=== PATIENT | female | born 1960 | race Caucasian/White ===

== ENCOUNTER 2017-06-17 17:41 | Inpatient (IN) | payer MEDICARE, OTHER ==
[~2017-06-17] VITALS: Ht 175.3 cm; Wt 78.9 kg
--- NOTE | 2017-06-17 17:50 | NUR ---
PT BIBRA FROM SNF. HERE FOR MEDICAL AND PSYCH EVAL FOR POSSIBLE PSYCH ADMISSION. PER REPORT, PT IS AGITATED, AGRESSIVE TO STAFF. ON MONITOR. STABLE VITALS. AWAITING MD CUELLAR.
[2017-06-17 18:22] LABS: BASOPHILS # (AUTO) 0.1 /CMM (0.0-0.2); BASOPHILS % (AUTO) 1.3 % (0.0-2.0); EOSINOPHILS # (AUTO) 0.1 /CMM (0.0-0.7); HEMATOCRIT 35 % (33-45); HEMOGLOBIN 12.1 g/dL (11.5-14.8); LYMPHOCYTES % (AUTO) 47.5 % (20.0-44.0); MEAN CORPUSCULAR HEMOGLOBIN 34 PG (26.0-33.0); MEAN CORPUSCULAR HGB CONC 35 g/dl (31.0-36.0); MEAN CORPUSCULAR VOLUME 97 fL (82-100); MONOCYTES % (AUTO) 9.7 % (2.0-12.0); NEUTROPHILS # (AUTO) 4.2 /CMM (1.8-8.9); NEUTROPHILS % (AUTO) 40.5 % (43.0-81.0); PLATELET COUNT (AUTO) 216 /CMM (150-450); RDW COEFFICIENT OF VARIATION 11.4 (11.5-15.0); RED BLOOD CELL COUNT(AUTO) 3.58 MIL/uL (4.0-5.2); WHITE BLOOD COUNT (AUTO) 10.4 K/uL (4.3-11.0)
[2017-06-17] MEDS ORDERED: ACET-868 PO (18:32)
[2017-06-17] MEDS ORDERED: FLUP10TA7 PO (18:32)
[2017-06-17] MEDS ORDERED: BISA10SU8 RC (18:32)
[2017-06-17] MEDS ORDERED: MAGN400O6 PO (18:32)
[2017-06-17] MEDS ORDERED: ATOR20TA PO (18:32)
[2017-06-17] MEDS ORDERED: BENZ2TAB7 PO (18:32)
[2017-06-17] MEDS ORDERED: DIVA500T2 PO (18:32)
[2017-06-17] MEDS ORDERED: NA P133E RC (18:32)
[2017-06-17] MEDS ORDERED: LURA60TA PO (18:32)
[2017-06-17] MEDS ORDERED: ASPI-991 PO (18:32)
[2017-06-17 18:38] LABS: ALANINE AMINOTRANSFERASE 15 U/L (12-78); ALBUMIN 3.2 g/dL (3.4-5.0); ALCOHOL, BLOOD < 3 mg/dL (0-0); ALKALINE PHOSPHATASE 84 U/L (46-116); ASPARTATE AMINOTRANSFERASE 16 U/L (15-37); BILIRUBIN,DIRECT 0.1 mg/dL (0.0-0.2); BILIRUBIN,TOTAL 0.2 mg/dL (0.2-1.0); CALCIUM, SERUM 8.8 mg/dL (8.5-10.1); CARBON DIOXIDE 26 mmol/L (21-32); CHLORIDE 101 mmol/L (98-107); CREATININE 0.8 mg/dL (0.6-1.3); GLUCOSE 115 mg/dL (74-106); POTASSIUM 4.2 mmol/L (3.5-5.1); SODIUM SERUM 133 mmol/L (136-145); TOTAL PROTEIN, SERUM 6.5 g/dL (6.4-8.2); UREA NITROGEN, BLOOD 23 mg/dL (7-18)
[2017-06-17 18:39] LABS: APPEARANCE,URINE Clear (CLEAR); BILIRUBIN,URINE Negative (NEGATIVE); BLOOD, URINE Negative Ery/uL (NEGATIVE); COLOR,URINE Yellow (YELLOW); KETONES,URINE Negative (NEGATIVE); LEUKOCYTE ESTERASE ,URINE Trace (NEGATIVE); NITRITE, URINE Negative (NEGATIVE); PH,URINE 6.5 (5.0-8.0); PROTEIN,URINE Negative (NEGATIVE); UGLUCOSE Negative (NEGATIVE); UROBILINOGEN,URINE 0.2 EU/dL (0.2)
[2017-06-17 18:44] LABS: ACETAMINOPHEN < 2 ug/ml (10-30); SALICYLATE 2.6 mg/dL (2.8-20.0)
--- NOTE | 2017-06-17 19:12 | NUR ---
CALLED ROSALIEY PAPER MACHINE OPERATOR, SHE WILL BE HERE IN 1 HR.
[2017-06-17 19:22] LABS: RBC,URINE 0-2 /HPF (0-2)
[2017-06-17 19:23] LABS: BACTERIA,URINE Few /HPF (None Seen); SQUAMOUS EPITHELIAL CELL,UR Moderate /HPF (None Seen); URINE AMORPHOUS URATE Few /HPF (None Seen)
--- NOTE | 2017-06-17 20:35 | NUR ---
NADEEM RN AT BEDSIDE FOR PSYCH EVAL.
--- NOTE | 2017-06-17 21:13 | NUR ---
REPORT GIVEN TO FREDA. PT AWAITING TRANSFER TO FLOOR.
[2017-06-17] MEDS ORDERED: ACETAMINOPHEN 325 MG TABLET PO PRN ×2 (21:30→23:00)
[2017-06-17] MEDS ORDERED: MAGNESIUM HYDROXIDE 30 ML UDC PO PRN ×2 (21:30→23:00)
[2017-06-17] MEDS ORDERED: BISACODYL SUPP (10 MG) 10 MG/SUPP.RECT SUPP.RECT RC PRN (21:30)
[2017-06-17 22:00] VITALS: BP 135/74
--- NOTE | 2017-06-17 22:00 | NUR ---
RN NOTES PATIENT ARRIVED ON UNIT VIA GURNEY FROM ER. PATIENT ADMITTED ON 5150 FOR GD AND DTO. PER HOLD PATIENT WAS BROUGHT IN FROM [facility] DUE TO ABUSIVE BEHAVIOR TOWARDS STAFF AND RESIDENTS. PATIENT WAS THREATENING AND PROVOKING STAFF. PATIENT IS A/O X2-3. NO SIGNS OF DISTRESS OR DISCOMFORT. BREATHING EVEN AND UNLABORED. PT. DENIES SUICIDAL AND HOMICIDAL. PATIENT IS NOTED TO BEING UNCOOPERATIVE, ANGRY, VERBALLY ABUSIVE, REFUSING CARE, LIABILE, IMPULSIVE, UNPREDICTABLE, EASILY AGITATED AND AGGRESSIVE. V/S TAKEN, CONTRABAND DONE AND SKIN ASSESSMENT WAS REFUSED BY PATIENT X3. PATIENT IS UNDER DR. MAZA FOR PSYCH CARE AND DR. THOMPSON FOR MEDICAL CARE. PATIENT ORIENTED TO UNIT AND ROOM. BED IN LOW LOCKED POSITION. CALL LIGHT WITHIN REACH. WILL CONTINUE TO MONITOR FOR SAFETY.
[2017-06-17] MEDS ORDERED: TEMAZEPAM 7.5 MG CAPSULE PO PRN (23:00)
[2017-06-17] MEDS ORDERED: MAG HYDROX/AL HYDROX/SIMETH 30 ML UDC PO PRN (23:00)
--- NOTE | 2017-06-18 08:03 | NUR ---
Initial discharge plan: Patient resides at [address] [place] [address] / [phone], with her sisters. Pt. wishes to go back to her residence with her sisters upon discharge. SW to communicate with patients sister Juan Yeager- [phone]) regarding most appropriate discharge plan. SW to help form a safe and proper discharge. Patient to be given substance abuse referrals prior to discharge. Addendum: 06/18/17 at 1212 by GWEN ROBLES INCORRECT DISCHARGE PLAN: PLEASE DISREGARD. INCORRECT PATIENT.
[2017-06-18 08:18] VITALS: BP 125/60
[2017-06-18] MEDS: LORAZEPAM 1 MG TABLET PO PRN ×2 (10:30→17:53)
[2017-06-18] MEDS ORDERED: NA PHOS,M-B/NA PHOS,DI-BA 1 EA ENEMA RC PRN (12:30)
[2017-06-18] MEDS: ASPIRIN EC 81 MG TABLET.DR PO SCH (12:30)
[2017-06-18 15:58] VITALS: BP 100/69
[2017-06-18] MEDS: DIVALPROEX SODIUM 500 MG TABLET.DR PO SCH ×2 (17:00→17:29)
--- NOTE | 2017-06-18 17:57 | NUR ---
RN NOTE:PATIENT AGITATED AND MEDICATED WITH ATIVAN 1MG.
--- NOTE | 2017-06-18 18:02 | NUR ---
RN-CO: Patient is verbally aggressive, yelling and screaming in the hallway and in the nursing station. We called security because she is non redirectable, she went momentarily to her room but when security left she went back to nursing station and curse all the nurses. She is very unpredictable, took PO Ativan but ineffective. Called Dr Campa and ordered Zyprexa 5 mg IM and Ativan 1 mg IM STAT, noted.
[2017-06-18] MEDS ORDERED: LORAZEPAM INJ 2 MG/ML VIAL IM STA (18:05)
[2017-06-18] MEDS ORDERED: OLANZAPINE 10 MG VIAL IM STA (18:05)
--- NOTE | 2017-06-18 18:29 | NUR ---
RN-CO: IM SHOT GIVEN ORDERED. WE WILL CONTINUE TO MONITOR.
--- NOTE | 2017-06-18 18:30 | NUR ---
RN-CO: IM SHOT GIVEN TO RIGHT UPPER QUADRANT, QUIET ENVIRONMENT WITH LOW LEVEL OF STIMULI. WE WILL CONTINUE TO MONITOR. SHE REMAINED ANGRY, DEMANDING AND INTRUSIVE.
[2017-06-18 20:24] VITALS: BP 110/73
[2017-06-18] MEDS: FLUPHENAZINE HCL 10 MG TABLET PO SCH (21:33)
[2017-06-18] MEDS: ATORVASTATIN 10 MG TABLET PO SCH (21:34)
[2017-06-19 08:16] VITALS: BP 128/66
[2017-06-19] MEDS: ASPIRIN EC 81 MG TABLET.DR PO SCH (08:54)
[2017-06-19] MEDS: DIVALPROEX SODIUM 500 MG TABLET.DR PO SCH ×3 (08:54→16:23)
[2017-06-19] MEDS: FLUPHENAZINE HCL 10 MG TABLET PO SCH ×2 (08:55→21:29)
[2017-06-19] MEDS: NICOTINE PATCH (14MG) 14 MG PATCH.TD24 TD SCH (09:00)
--- NOTE | 2017-06-19 10:17 | NUR ---
Initial Discharge Plan: Patient currently resides at [facility] [address] [id number], and wishes to return upon discharge. milk processing worker called [facility] and spoke with Sadaf in administrations. At first Sadaf stated that patient was able to return to the SNF. However, Sadaf then consulted with the nursing mushroom growing supervisor and informed SW that patient was ready to be discharged from the SNF back to her assisted living facility. Sadaf asked outreach and education social worker to call her later so that she can provide the address and information for her. milk processing worker will follow up with MD and will work to arrange safe and proper discharge.Patient will be provided referrals for smoking.
[2017-06-19] MEDS: LORAZEPAM 1 MG TABLET PO PRN ×2 (12:39→21:29)
--- NOTE | 2017-06-19 12:43 | NUR ---
RN NOTES: PT IS AGITATED, MEDICATED WITH ATIVAN 1MG.
--- NOTE | 2017-06-19 13:17 | NUR ---
Please note: PATIENT HAS CONSERVATOR. The conservator is patient's mother, Sindy Dukes [phone] [home] / [phone] [cell]. MARGARET asked Sindy to fax over the paperwork, which she stated she will do in a couple hours. Addendum: 06/19/17 at 1318 by ADRIEN ROBLES when speaking with conservator/mother, MARGARET was informed that a nursing facility would be best for patient.
--- NOTE | 2017-06-19 15:27 | NUR ---
MARGARET faxed over an inquiry to Leonel from [facility] [phone] / fax number [phone]
[2017-06-19 16:00] VITALS: BP_SYST 130
[2017-06-19] MEDS: QUETIAPINE FUMARATE 100 MG TABLET PO SCH (17:39)
[2017-06-19 20:03] VITALS: BP 107/52
[2017-06-19] MEDS: ATORVASTATIN 10 MG TABLET PO SCH (21:28)
[2017-06-20 08:54] VITALS: BP 117/69
[2017-06-20] MEDS: FLUPHENAZINE HCL 10 MG TABLET PO SCH ×2 (09:04→21:43)
[2017-06-20] MEDS: DIVALPROEX SODIUM 500 MG TABLET.DR PO SCH ×3 (09:04→16:19)
[2017-06-20] MEDS: NICOTINE PATCH (14MG) 14 MG PATCH.TD24 TD SCH (09:04)
[2017-06-20] MEDS: ASPIRIN EC 81 MG TABLET.DR PO SCH (09:04)
[2017-06-20] MEDS: QUETIAPINE FUMARATE 100 MG TABLET PO SCH ×3 (09:04→16:19)
[2017-06-20] MEDS: LORAZEPAM 1 MG TABLET PO PRN (12:27)
--- NOTE | 2017-06-20 12:27 | NUR ---
GPS/RN PATIENT AGITATED, ANXIOUS, AGGRESSIVE, YELLING AT STAFF, ADMINISTERED ATIVAN 1 MG, WILL CONTINUE TO MONITOR.
[2017-06-20 16:27] VITALS: BP 126/59
[2017-06-20] MEDS: ATORVASTATIN 10 MG TABLET PO SCH (21:43)
[2017-06-21 07:24] LABS: CALCIUM, SERUM 8.6 mg/dL (8.5-10.1); CREATININE 0.8 mg/dL (0.6-1.3); MAGNESIUM 1.8 mg/dL (1.8-2.4); PHOSPHORUS 3.9 mg/dL (2.5-4.9); POTASSIUM 4.4 mmol/L (3.5-5.1)
[2017-06-21 08:00] VITALS: BP 112/80
--- NOTE | 2017-06-21 09:14 | NUR ---
motion picture set worker spoke to patient's mother and conservator, Sindy Jenkinsedmundo [phone] [home] / [phone] [cell] to inform her that patient is being discharged back to [facility] [phone]) [address] [facility] [place] [address]. Patient's mother and conservator was agreeable with the discharge plan.
[2017-06-21] MEDS: QUETIAPINE FUMARATE 100 MG TABLET PO SCH ×3 (09:36→16:12)
[2017-06-21] MEDS: ASPIRIN EC 81 MG TABLET.DR PO SCH (09:36)
[2017-06-21] MEDS: FLUPHENAZINE HCL 10 MG TABLET PO SCH (09:36)
[2017-06-21] MEDS: NICOTINE PATCH (14MG) 14 MG PATCH.TD24 TD SCH (09:36)
[2017-06-21] MEDS: DIVALPROEX SODIUM 500 MG TABLET.DR PO SCH ×3 (09:36→16:12)
--- NOTE | 2017-06-21 11:30 | NUR ---
GPS/RN REPORT GIVEN TO [facility] DEN[facility] RN
--- NOTE | 2017-06-21 12:30 | NUR ---
GPS/RN CALL FROM [facility] (DENISHA RN) RECEIVED DECLINING ADMISSION OF THE PT. SW MADE AWARE AND WILL MAKE APPROPRIATE ARRANGEMENTS. AMBULANCE PLACED CASINO CASHIER MANAGER STATUS. PT IS READY FOR D/C.
[2017-06-21 16:00] VITALS: BP 110/66
--- NOTE | 2017-06-21 16:30 | NUR ---
GPS/RN PT DISCHARGED TO [facility] [address] REPORT GIVEN TO NATHALIE YOUNG [phone]. PT TO BE FOLLOWED BY FACILITY DYE WEIGHER HELPER.PT MOTHER /CONSERVATOR MADE AWARE OF DISCHARGE. NO SI OR HI AT THE TIME OF DISCHARGE. PT REFUSED TO SIGN D/C PAPERWORK . PROPERTY RETURNED. ID BAN REMOVED. PT LEFT VIA AMBULANCE.
--- NOTE | 2017-06-24 10:40 | NUR ---
Discharge Note Patient was discharged to [facility] at [address] [facility], [id number] via ambulance transportation at 4:00pm. Patients mother and conservator, Sindy Dukes [phone] [home] / [phone] [cell], was made aware of this change in discharge plan. She was in agreement with the change. Patient will follow up with her cnc milling machinist, Dr. Todd [address], [place] [address] [phone] on Sunday 06/24 at 10am. Patient will also follow up with a psychiatrist at the facility the following week. The psychiatrist will also address patients alcohol use. As patient will be in a locked SNF, no nicotine anonymous referrals were given because patient would not be able to attend. However, patient was strongly encouraged to follow up with her doctor at the facility to address her smoking and work on smoking cessation.
== END 2017-06-21 16:30 | DRG 885 ==
LOC: ER 17:45 → GPS 21:05
PROVIDERS: ADMIT Psychiatry & Neurology Psychiatry; ATTEND Psychiatry & Neurology Psychiatry
DX: F25.9 Schizoaffective disorder, unspecified (principal); E87.1 Hypo-osmolality and hyponatremia; N39.0 Urinary tract infection, site not specified; F29 Unspecified psychosis not due to a substance or known physiological condition; E78.5 Hyperlipidemia, unspecified; G40.909 Epilepsy, unspecified, not intractable, without status epilepticus; G89.4 Chronic pain syndrome; I10 Essential (primary) hypertension; I25.10 Atherosclerotic heart disease of native coronary artery without angina pectoris; F32.9 Major depressive disorder, single episode, unspecified; Z79.899 Other long term (current) drug therapy; Z79.82 Long term (current) use of aspirin; F41.9 Anxiety disorder, unspecified; Z73.6 Limitation of activities due to disability; E86.0 Dehydration; F17.200 Nicotine dependence, unspecified, uncomplicated
CPT/HCPCS: 36415; 80048-TC; 80076-TC; 80164-TC; 80305; 81000-TC; 83735-TC; 84100-TC; 85025-TC; 87081-TC; G0480; J2060; J3490

== ENCOUNTER 2020-02-11 15:02 | Inpatient (IN) | payer MEDICARE, OTHER ==
[~2020-02-11] VITALS: Ht 167.6 cm; Wt 69.4 kg
[~2020-02-11 15:02] MED LIST: ACET-868 PO; ASPI-1152 PO; ATOR20TA PO; BENZ2TAB7 PO; BISA10SU8 RC; LURA60TA PO; MAGN400O6 PO; NA P133E RC
[2020-02-11 16:00] VITALS: BP 135/71
[2020-02-11] MEDS ORDERED: MAGNESIUM HYDROXIDE 30 ML UDC PO PRN (16:00)
[2020-02-11] MEDS ORDERED: ACETAMINOPHEN 325 MG TABLET PO PRN ×2 (16:00→18:00)
[2020-02-11] MEDS ORDERED: BLOOD SUGAR DIAGNOSTIC 1 EACH STRIP IN ONE (16:00)
[2020-02-11] MEDS ORDERED: ZOLPIDEM TARTRATE 5 MG TABLET PO PRN (16:00)
[2020-02-11] MEDS ORDERED: CLON0.5T4 PO (16:55)
[2020-02-11] MEDS ORDERED: OLAN10TA3 PO (16:55)
[2020-02-11] MEDS ORDERED: DIVA-78 PO (16:55)
[2020-02-11] MEDS ORDERED: DOCU-141 PO (16:55)
[2020-02-11] MEDS ORDERED: ALBU18HF2 IH (16:55)
[2020-02-11] MEDS ORDERED: MULT-15 PO (16:55)
[2020-02-11] MEDS ORDERED: ACET-868 PO (16:55)
[2020-02-11] MEDS ORDERED: LETR2.5T PO (16:55)
[2020-02-11] MEDS ORDERED: MAG30ORA PO (16:55)
[2020-02-11] MEDS ORDERED: TRAM50TA2 PO (16:55)
[2020-02-11] MEDS ORDERED: GUAI5SYR PO (16:55)
[2020-02-11] MEDS ORDERED: FAMO40TA7 PO (16:55)
[2020-02-11] MEDS ORDERED: POLY17PO20 PO (16:55)
[2020-02-11] MEDS ORDERED: SENN-261 PO (16:55)
[2020-02-11] MEDS ORDERED: ONDA4TAB5 PO (16:55)
[2020-02-11] MEDS ORDERED: LORA10TA7 PO (16:55)
[2020-02-11] MEDS ORDERED: HYDR25TA4 PO (16:55)
[2020-02-11] MEDS ORDERED: SPIR100T5 PO (16:55)
--- NOTE | 2020-02-11 17:46 | NUR ---
GPS/RN-NOTES ADMITTED 59 YEARS OLD FEMALE PATIENT FROM [facility]. PATIENT ON 5150 HOLD FOR DTS AND DTO. UPON FACE TO FACE INTERVIEW PATIENT,ALERT TO NAME AND PLACE ONLY,PATIENT IS UNCOOPERATIVE,EASILY ANGRY,YELLING AT THE ACCOUNT SPECIALIST DURING INTERVIEW. PATIENT REFUSED TO ANSWER MOST OF THE QUESTIONS. DR. STARR AND DR. BLACK MADE AWRE OF THE ADMISSION. DR. BLACK WILL RECONCILE THE MEDICATION. PATIENT'S MOTHER ERON MADE AWARE OF THE ADMISSION. PATIENT REFUSED FULL BODY ASSESSMENT. AND REFUSED TO SIGN ADMITTING PAPERS. CONTRABAND DONE.
[2020-02-11] MEDS ORDERED: FAMOTIDINE 40 MG TABLET PO SCH (18:00)
[2020-02-11] MEDS ORDERED: ALBUTEROL FS 2.5 MG/3 ML VIAL.NEB NEB PRN (18:00)
[2020-02-11] MEDS: HYDROCHLOROTHIAZIDE 25 MG TABLET PO SCH (18:24)
--- NOTE | 2020-02-11 18:41 | NUR ---
GPS/RN-NOTES FEMARA 2.5MG P.O NOT ADMINISTER AT THIS TIME DUE TO MEDICATION WAS NOT DELIVER YET IN THE UNIT. [facility]ENE ( PHARMACIES) AWARE AND WILL SEND IN THE UNIT. WILL ENDORSE TO INCOMING NURSE FOR F/U AND CONTINUITY OF CARE.
--- NOTE | 2020-02-11 19:23 | NUR ---
GPS/RN-NOTES ADVISEMENT WAS DISCUSS AND GIVEN TO THE PATIENT.
[2020-02-11 20:37] VITALS: BP 109/65
[2020-02-11] MEDS: DOCUSATE SODIUM 100 MG CAPSULE PO SCH (21:00)
[2020-02-11] MEDS ORDERED: ONDANSETRON 4 MG TAB.RAPDIS PO PRN (21:00)
[2020-02-11] MEDS: LETROZOLE 2.5 MG TABLET PO SCH (22:00)
--- NOTE | 2020-02-11 22:01 | NUR ---
Pt refused medication Femara and Colace. Offered x 3 and explained risk and benefits. Still refuses and aggressive, Stating, Leave me alone, i am not going to take any medications. Will continue to monitor and will endorse to next shift. Charge nurse made aware.
[2020-02-12] MEDS: TRAMADOL HCL 50 MG TABLET PO PRN (06:21)
--- NOTE | 2020-02-12 06:23 | NUR ---
Pt c/o back pain 01/02. Ultram 50 mg po prn given as ordered. Will continue to monitor.
[2020-02-12 08:00] VITALS: BP 136/82
[2020-02-12] MEDS: POLYETHYLENE GLYCOL 3350 17 GM POWD.PACK PO SCH (08:45)
[2020-02-12] MEDS: LORATADINE 10 MG TABLET PO SCH (08:45)
[2020-02-12] MEDS: SPIRONOLACTONE 25 MG TABLET PO SCH (08:45)
[2020-02-12] MEDS: SENNOSIDES 8.6 MG TABLET PO SCH (08:45)
[2020-02-12] MEDS: DOCUSATE SODIUM 100 MG CAPSULE PO SCH ×2 (08:45→21:25)
[2020-02-12] MEDS: MULTIVITAMINS,THERAGRAN 1 UDTAB TABLET PO SCH (08:46)
--- NOTE | 2020-02-12 08:46 | NUR ---
GPS/RN PT REFUSED AM MEDS OFFERED X3
[2020-02-12] MEDS ORDERED: SPIRONOLACTONE 50 MG TABLET PO SCH (09:00)
--- NOTE | 2020-02-12 10:09 | NUR ---
Family Contact: SW called the pts mother, Ashley ([phone]), and left a voicemail stating that the SW would like to discuss the pts initial discharge and treatment plan.
--- NOTE | 2020-02-12 10:25 | NUR ---
Facility Contact: MARGARET spoke with Nancy ([phone]), [facility] Accountant Bookkeeper, and she stated that the pt cannot return to the Board and Care due to her behavior. She stated that she will move the pts belongings to her next residence once she is made aware of the pts discharge. MARGARET stated that she will follow up.
--- NOTE | 2020-02-12 10:56 | NUR ---
Initial Discharge Plan: Pt currently resides at [facility] located at [address] [place] [address]; ([phone]). Per pt, she would not like to go back to that facility. MARGARET spoke with Nancy ([phone]), [facility] and [facility] Licensed Customs Broker, and she stated that the pt cannot return as well. MARGARET will work with the pt and the MD regarding appropriate discharge planning. MARGARET will form a safe and proper discharge.
--- NOTE | 2020-02-12 12:09 | NUR ---
Family Contact: Pts mother, Ashley ([phone]), called the SW back to discuss the pts initial discharge plan. SW informed her that the pt cannot return to the pts previous board and care and therefore we need to either find an alternative board and care or seek a senior living facility. She stated that she believes that a SNF would be better for the pt so that she can continuously take her medication.
--- NOTE | 2020-02-12 15:26 | NUR ---
GROUP NOTE/INDIVIDUAL SESSION: SW encouraged the pt to participate in group therapy but the pt is labile and verbally aggressive and confrontational. SW deemed this pt inappropriate for group at this time.
[2020-02-12 16:00] VITALS: BP 136/84
[2020-02-12 17:28] LABS: ALBUMIN 4.1 g/dL (3.4-5.0); BILIRUBIN,TOTAL 0.2 mg/dL (0.2-1.0); CALCIUM, SERUM 9.3 mg/dL (8.5-10.1); POTASSIUM 3.9 mmol/L (3.5-5.1); TOTAL PROTEIN, SERUM 8.4 g/dL (6.4-8.2)
[2020-02-12 17:32] LABS: CHOLESTEROL 219 mg/dL (<200); HDL CHOLESTEROL 34 mg/dL (40-60); LDL 170 mg/dL (0-99); TRIGLYCERIDES 232 mg/dL (30-150)
[2020-02-12] MEDS: FAMOTIDINE (20 MG) 20 MG TABLET PO SCH (18:10)
[2020-02-12] MEDS: OLANZAPINE 5 MG TABLET PO SCH (18:11)
[2020-02-12] MEDS: HYDROCHLOROTHIAZIDE 25 MG TABLET PO SCH (18:11)
[2020-02-12] MEDS: LETROZOLE 2.5 MG TABLET PO SCH (18:11)
[2020-02-12 20:47] VITALS: BP 142/89
[2020-02-13 08:00] VITALS: BP 101/65
[2020-02-13] MEDS: OLANZAPINE 5 MG TABLET PO SCH ×2 (08:52→16:08)
[2020-02-13] MEDS: LORAZEPAM 0.5 MG TABLET PO PRN (08:54)
[2020-02-13] MEDS: LORATADINE 10 MG TABLET PO SCH (08:56)
[2020-02-13] MEDS: DOCUSATE SODIUM 100 MG CAPSULE PO SCH ×2 (08:56→20:45)
[2020-02-13] MEDS: MULTIVITAMINS,THERAGRAN 1 UDTAB TABLET PO SCH (08:56)
[2020-02-13] MEDS: SENNOSIDES 8.6 MG TABLET PO SCH (08:56)
[2020-02-13] MEDS: POLYETHYLENE GLYCOL 3350 17 GM POWD.PACK PO SCH (08:58)
[2020-02-13] MEDS: SPIRONOLACTONE 25 MG TABLET PO SCH (08:58)
--- NOTE | 2020-02-13 08:59 | NUR ---
GPS/RN-NOTES NOTED PATIENT VERY ANXIOUS SCREAMING AND YELLING TALKING ABOUT HER MOTHER,STATED" MY MOTHER IS VERY OLD AND I'M VERY SICK", REDIRECTED AND REASSURED PATIENT OFFERED ATIVAN AND AGREED. ATIVAN 1MG P.O GIVEN PRN ORDER. WILL CONT. MONITORING FOR SAFETY AND BEHAVIOR.
[2020-02-13] MEDS: MAG HYDROX/AL HYDROX/SIMETH 30 ML UDC PO PRN (12:27)
--- NOTE | 2020-02-13 12:27 | NUR ---
GPS/RN-NOTES PATIENT C/O INDIGESTION ,MAALOX 30ML GIVEN PRN ORDER.
[2020-02-13 16:00] VITALS: BP 116/76
[2020-02-13] MEDS: GABAPENTIN 100 MG CAPSULE PO SCH (16:08)
[2020-02-13] MEDS: FAMOTIDINE (20 MG) 20 MG TABLET PO SCH (17:08)
[2020-02-13] MEDS: LETROZOLE 2.5 MG TABLET PO SCH (17:08)
[2020-02-13] MEDS: HYDROCHLOROTHIAZIDE 25 MG TABLET PO SCH (17:09)
[2020-02-13 20:06] VITALS: BP 96/62
[2020-02-13 21:00] VITALS: BP 104/64
[2020-02-14] MEDS: LORAZEPAM 0.5 MG TABLET PO PRN (01:10)
--- NOTE | 2020-02-14 01:13 | NUR ---
GPS RN NOTES: ANXIOUS PT CAME OUT OF HER ROOM STATING THAT HER ROOMMATE WOKE HER UP TELLING HER THAT THE SUN IS MELTING THE GROUND. WENT TO PTS ROOM NOTED THAT HER ROOMATE IS SLEEPING WITH EYES CLOSED. PT STATED, "SHES UGLY AND I WANT TO SIT IN THE HALLWAY." PT SITTING IN WALKER CHAIR NEXT TO STAFF FOR SAFETY MONITOR. PT SEEMS ANXIOUS. OFFERED ATIVAN 1MG PO PRN ORDERED. PT AGREED AND TOLERATED MEDICATION WELL. CONTINUE TO MONITOR.
--- NOTE | 2020-02-14 07:02 | NUR ---
GPS RN NOTES: PAIN PT C/O OF STOMACH PAIN. OFFER TYLENOL 650 MG PO PRN ORDERED. PT AGREED AND TOLERATED WELL CONTINUE TO MONITOR.
[2020-02-14 08:00] VITALS: BP 116/69
[2020-02-14] MEDS: MULTIVITAMINS,THERAGRAN 1 UDTAB TABLET PO SCH (09:00)
[2020-02-14] MEDS: DOCUSATE SODIUM 100 MG CAPSULE PO SCH ×2 (09:00→20:39)
[2020-02-14] MEDS: LORATADINE 10 MG TABLET PO SCH (09:00)
[2020-02-14] MEDS: OLANZAPINE 5 MG TABLET PO SCH ×2 (09:00→16:41)
[2020-02-14] MEDS: POLYETHYLENE GLYCOL 3350 17 GM POWD.PACK PO SCH (09:00)
[2020-02-14] MEDS: GABAPENTIN 100 MG CAPSULE PO SCH ×2 (09:00→16:41)
[2020-02-14] MEDS: SENNOSIDES 8.6 MG TABLET PO SCH (09:00)
--- NOTE | 2020-02-14 09:00 | NUR ---
RN NOTE- PT IN ROOM AND WANDERING UNIT. ALERT CALM COOPERATIVE A BIT NEEDY AND INTRUSIVE AT TIMES. DENIES SI HI AH VH. TALKING ABOUT FATHERS DA AND HER FATHER DYING. DIRECTABLE .
[2020-02-14] MEDS: SPIRONOLACTONE 25 MG TABLET PO SCH (09:01)
[2020-02-14 16:00] VITALS: BP 110/62
[2020-02-14] MEDS: HYDROCHLOROTHIAZIDE 25 MG TABLET PO SCH (17:19)
[2020-02-14] MEDS: FAMOTIDINE (20 MG) 20 MG TABLET PO SCH (17:20)
[2020-02-14] MEDS: LETROZOLE 2.5 MG TABLET PO SCH (17:22)
[2020-02-14] MEDS: TRAMADOL HCL 50 MG TABLET PO PRN ×2 (18:39→18:44)
--- NOTE | 2020-02-14 18:45 | NUR ---
RN NOTE/ CHARTING ERROR. - PT C/O PAIN, ULTRAM PULLED AND SCANNED, PAIN ASSESSMENT DONE. PT THEN C/O PAIN MORE IMPORTANTLY RELATED TO NEUROPATHY IN RT FOOT. ULTRAM ADMINISTERED. I THEN RESCANNED TO ADJUST ASSESSMENT INFORMATION. IT LISTED ULTRAM BEING GIVEN TWICE BUT ONLY ONE WAS ADMINISTERED AND THE COUNT IS CORRECT IN OMNICELL.
[2020-02-14 20:14] VITALS: BP 121/84
--- NOTE | 2020-02-15 06:27 | NUR ---
GPS RN CLOSING NOTE, PATIENT AWAKE THIS TIME, ALREADY WITH EPISODES OF PARANOIA, NO DISTRESS NOTED, PT REMAINED STABLE THROUGHOUT SHIFT, ALL NEEDS, SAFETY PRECAUTIONS IN PLACE, BED LOCKED POSITION AND LOWEST POSITION, BED ALARM ON, HOB ELEVATED TO SEMI FOWLERS POSITION, CALL LIGHT WITHIN REACH, WILL ENDORSE CONTINUITY OF CARE TO ONCOMING NURSE.
[2020-02-15] MEDS: LORATADINE 10 MG TABLET PO SCH (08:31)
[2020-02-15] MEDS: GABAPENTIN 100 MG CAPSULE PO SCH ×2 (08:31→17:16)
[2020-02-15] MEDS: SENNOSIDES 8.6 MG TABLET PO SCH (08:31)
[2020-02-15] MEDS: OLANZAPINE 5 MG TABLET PO SCH ×2 (08:31→17:16)
[2020-02-15] MEDS: SPIRONOLACTONE 25 MG TABLET PO SCH (08:31)
[2020-02-15] MEDS: DOCUSATE SODIUM 100 MG CAPSULE PO SCH ×2 (08:31→21:00)
[2020-02-15] MEDS: POLYETHYLENE GLYCOL 3350 17 GM POWD.PACK PO SCH (08:31)
[2020-02-15] MEDS: MULTIVITAMINS,THERAGRAN 1 UDTAB TABLET PO SCH (08:31)
--- NOTE | 2020-02-15 08:32 | NUR ---
RN NOTE- HELD ALDACTONE PT REFUSED VS TWICE
--- NOTE | 2020-02-15 09:00 | NUR ---
RN NOTE- PT IN WATSON AND ROOM, FOCUSED ON NEUROPATHY THOUGH CLAIMS IT ISNT BOTHERING HER AT MOMENT. PT REFUSED VS THIS MORNING THOUGH MED COMPLIANT. PO INTAKE GOOD NEEDS ATTENDED DENIES SI HI AH VH PARANOID GUARDED IRRITABLE AT TIMES POOR EYE CONTACT PRESSURED SPEECH
[2020-02-15] MEDS: LORAZEPAM 0.5 MG TABLET PO PRN (10:25)
--- NOTE | 2020-02-15 10:25 | NUR ---
RN NOTE- PT VERY LABILE YELLING INTRUSIVE OPPOSITIONAL TO DIRECTION REFUSED ATIVAN. REORIENTED W EXTRA STAFF. TOOK ATIVAN 1 MG
[2020-02-15 16:00] VITALS: BP 111/77
--- NOTE | 2020-02-15 16:08 | NUR ---
GROUP NOTE: SW encouraged the pt to participate in group therapy but the pt refused, pt is labile and verbally aggressive. Pt refused to engage with SW. SW deemed this pt inappropriate for group at this time.
[2020-02-15] MEDS: HYDROCHLOROTHIAZIDE 25 MG TABLET PO SCH (17:15)
[2020-02-15] MEDS: FAMOTIDINE (20 MG) 20 MG TABLET PO SCH (17:16)
[2020-02-15] MEDS: LETROZOLE 2.5 MG TABLET PO SCH (17:18)
[2020-02-15] MEDS: SIMVASTATIN 10 MG TABLET PO SCH (21:00)
--- NOTE | 2020-02-15 21:00 | NUR ---
GPS RN NOTES: REFUSED MED PT REFUSED COLACE 100MG AND ZOCOR 10 MG PO ORDERED. PT YELLED AND STATED, " WHAT THE HELL IS WRONG WITH YOU/ I DON'T WANT THAT SHIT! GET OUT!" EXPLAIN RISKS AND BENEFITS. PT STILL REFUSED X3. CONTINUE TO MONITOR.
[2020-02-16 08:00] VITALS: BP 120/65
[2020-02-16] MEDS: POLYETHYLENE GLYCOL 3350 17 GM POWD.PACK PO SCH (09:00)
[2020-02-16] MEDS: OLANZAPINE 5 MG TABLET PO SCH ×2 (09:01→17:28)
[2020-02-16] MEDS: MULTIVITAMINS,THERAGRAN 1 UDTAB TABLET PO SCH (09:02)
[2020-02-16] MEDS: DOCUSATE SODIUM 100 MG CAPSULE PO SCH ×2 (09:02→21:12)
[2020-02-16] MEDS: GABAPENTIN 100 MG CAPSULE PO SCH ×2 (09:02→17:25)
[2020-02-16] MEDS: SENNOSIDES 8.6 MG TABLET PO SCH (09:02)
[2020-02-16] MEDS: LORATADINE 10 MG TABLET PO SCH (09:02)
[2020-02-16] MEDS: SPIRONOLACTONE 25 MG TABLET PO SCH (09:02)
--- NOTE | 2020-02-16 09:39 | NUR ---
PLACEMENT: SW faxed clinical packet to Dr. Joe Robb's certified nurse (P:[phone] F:[phone]) for SNF placement options.
--- NOTE | 2020-02-16 10:05 | NUR ---
WOUND CARE CONSULT: PT SEEN AFTER SPEAKING WITH NURSING STAFF REGARDING LONG SHARP TOENAILS, PRESENT ON ADMISSION. RECOMMEND DPM CONSULT. (PT REQUESTING NAIL TRIM). DR LU NOTIFIED. WILL SEE PRN. CURRENT NIURKA SCORE IS 21.
[2020-02-16] MEDS: LORAZEPAM 0.5 MG TABLET PO PRN (12:35)
--- NOTE | 2020-02-16 12:38 | NUR ---
RN NOTE: ANXIETY PT YELLLING IN HALLWAY. INCREASED AGGITATION AND ANXIETY. MEDICATED WITH ATIVAN 1MG PRN
--- NOTE | 2020-02-16 15:29 | NUR ---
GROUP NOTE: SW encouraged the pt to participate in group therapy, however, pt is not appropriate at this time. Pt is easily agitated with labile mood, pt began yelling, "give me my medication, give it to me." SW stepped out of the pts room as pts behavior began to escalate.
[2020-02-16 16:00] VITALS: BP 125/69
[2020-02-16] MEDS: LETROZOLE 2.5 MG TABLET PO SCH (17:28)
[2020-02-16] MEDS: FAMOTIDINE (20 MG) 20 MG TABLET PO SCH (17:29)
[2020-02-16] MEDS: HYDROCHLOROTHIAZIDE 25 MG TABLET PO SCH (17:29)
[2020-02-16 20:00] VITALS: BP 119/65
[2020-02-16] MEDS: SIMVASTATIN 10 MG TABLET PO SCH (21:13)
[2020-02-17 08:00] VITALS: BP 147/82
[2020-02-17] MEDS: GABAPENTIN 100 MG CAPSULE PO SCH ×3 (08:31→16:38)
[2020-02-17] MEDS: OLANZAPINE 5 MG TABLET PO SCH ×3 (08:31→16:39)
[2020-02-17] MEDS: MULTIVITAMINS,THERAGRAN 1 UDTAB TABLET PO SCH ×2 (08:31→09:00)
[2020-02-17] MEDS: DOCUSATE SODIUM 100 MG CAPSULE PO SCH ×3 (08:32→21:23)
[2020-02-17] MEDS: LORATADINE 10 MG TABLET PO SCH ×2 (08:32→09:00)
[2020-02-17] MEDS: SENNOSIDES 8.6 MG TABLET PO SCH ×2 (08:36→09:00)
[2020-02-17] MEDS: POLYETHYLENE GLYCOL 3350 17 GM POWD.PACK PO SCH ×2 (08:36→09:00)
[2020-02-17] MEDS: SPIRONOLACTONE 25 MG TABLET PO SCH ×2 (08:36→09:00)
--- NOTE | 2020-02-17 14:54 | NUR ---
GROUP NOTE: SW encouraged the pt to participate in group therapy pt refused and asked SW regarding her discharge. SW informed her that SW is still looking at placement options. Pt agreed and walked away.
[2020-02-17 16:00] VITALS: BP 138/59
[2020-02-17] MEDS: LORAZEPAM 0.5 MG TABLET PO PRN (16:07)
--- NOTE | 2020-02-17 16:07 | NUR ---
RN-CO: ATIVAN 1 MG PO GIVEN FOR AGITATION.
[2020-02-17] MEDS: LETROZOLE 2.5 MG TABLET PO SCH (17:30)
[2020-02-17] MEDS: FAMOTIDINE (20 MG) 20 MG TABLET PO SCH (17:30)
[2020-02-17] MEDS: HYDROCHLOROTHIAZIDE 25 MG TABLET PO SCH (17:31)
[2020-02-17] MEDS: MAG HYDROX/AL HYDROX/SIMETH 30 ML UDC PO PRN (18:15)
--- NOTE | 2020-02-17 18:18 | NUR ---
GINACO: C/O BILL ALVAREZ GIVEN.
[2020-02-17 19:41] VITALS: BP 117/75
[2020-02-17] MEDS: SIMVASTATIN 10 MG TABLET PO SCH (21:23)
[2020-02-18 08:00] VITALS: BP 118/74
[2020-02-18] MEDS: SPIRONOLACTONE 25 MG TABLET PO SCH (08:57)
[2020-02-18] MEDS: LORATADINE 10 MG TABLET PO SCH (08:57)
[2020-02-18] MEDS: GABAPENTIN 100 MG CAPSULE PO SCH ×2 (08:57→17:00)
[2020-02-18] MEDS: MULTIVITAMINS,THERAGRAN 1 UDTAB TABLET PO SCH ×2 (08:57→09:00)
[2020-02-18] MEDS: OLANZAPINE 5 MG TABLET PO SCH ×3 (08:57→17:00)
[2020-02-18] MEDS: SENNOSIDES 8.6 MG TABLET PO SCH (08:58)
[2020-02-18] MEDS: DOCUSATE SODIUM 100 MG CAPSULE PO SCH ×2 (08:58→21:00)
[2020-02-18] MEDS: POLYETHYLENE GLYCOL 3350 17 GM POWD.PACK PO SCH (08:58)
--- NOTE | 2020-02-18 09:00 | NUR ---
SNF REFERRAL: SW faxed SNF referral to [facility] (SNF) [address] [facility] [place], [address] and [facility] ([facility]) [address] [facility] [address] for review.
--- NOTE | 2020-02-18 09:03 | NUR ---
Pt. took only Zyprexa 5 mg instead 10 mg and refused Thera Vitamins. Was explained on the importance.
--- NOTE | 2020-02-18 10:16 | NUR ---
SNF REFERRAL: SW received a call from CURLY, medical staffing coordinator at [facility] [address] [place] [place], [address] stating pt has been accepted to the facility.
--- NOTE | 2020-02-18 12:47 | NUR ---
Pt. is highly agitated, screaming, yelling, paranoid about mexicans and kicking the door. Dr. briggs made aware and order Zyprexa 10 mg IM x1.
[2020-02-18] MEDS ORDERED: OLANZAPINE 10 MG VIAL IM ONE (13:00)
[2020-02-18] MEDS: TRAMADOL HCL 50 MG TABLET PO PRN (14:44)
--- NOTE | 2020-02-18 15:09 | NUR ---
GROUP NOTE: Pt is not appropriate for group at this time. Pt was verbally aggressive and paranoid; yelling and screaming. Pt was given an IM.
[2020-02-18 16:00] VITALS: BP 116/77
[2020-02-18] MEDS: LETROZOLE 2.5 MG TABLET PO SCH (17:31)
--- NOTE | 2020-02-18 17:32 | NUR ---
Pt. refused meds due for 1699, explained on the importance and still refusing.
[2020-02-18] MEDS: HYDROCHLOROTHIAZIDE 25 MG TABLET PO SCH (18:00)
[2020-02-18] MEDS: FAMOTIDINE (20 MG) 20 MG TABLET PO SCH (18:00)
[2020-02-18 20:00] VITALS: BP 117/80
[2020-02-18] MEDS: SIMVASTATIN 10 MG TABLET PO SCH (21:39)
--- NOTE | 2020-02-18 21:46 | NUR ---
GPS RN NOTES PATIENT REFUSED SCHEDULED 2200 MEDS COLACE 100 MG PO & SIMVASTATIN 10 MG PO. PATIENT STATED "I DON'T NEED THOSE MEDS, I DON'T HAVE ANY PROBLEM, LEAVE ME ALONE SO I CAN SLEEP". CHARGE NURSE MADE AWARE.
[2020-02-19 08:00] VITALS: BP 105/51
[2020-02-19] MEDS: GABAPENTIN 100 MG CAPSULE PO SCH ×2 (08:22→17:46)
[2020-02-19] MEDS: MULTIVITAMINS,THERAGRAN 1 UDTAB TABLET PO SCH (08:23)
[2020-02-19] MEDS: LORATADINE 10 MG TABLET PO SCH (08:23)
[2020-02-19] MEDS: OLANZAPINE 5 MG TABLET PO SCH ×2 (08:23→17:46)
[2020-02-19] MEDS: POLYETHYLENE GLYCOL 3350 17 GM POWD.PACK PO SCH (08:23)
[2020-02-19] MEDS: SENNOSIDES 8.6 MG TABLET PO SCH (08:25)
[2020-02-19] MEDS: SPIRONOLACTONE 25 MG TABLET PO SCH (08:25)
[2020-02-19] MEDS: DOCUSATE SODIUM 100 MG CAPSULE PO SCH ×2 (08:25→21:16)
--- NOTE | 2020-02-19 09:00 | NUR ---
RN NOTE- PT IN ROOM OPPOSITIONAL TO CARE STATED 'YOU'RE A DRUG ADDICT AND A PUSHER. YOU'LL BE ARRESTED SHORTLY. ALL OF YOU WILL." MADE ME OPEN RX IN FRONT OF HER THOUGH MED COMPLIANT. PARANOID IRRITABLE GUARDED
--- NOTE | 2020-02-19 14:44 | NUR ---
INDIVIDUAL MEETING: SW met with pt to discuss her mood and medication compliance. Pt stated that she agrees to take medication and states that she wishes to be discharged soon. SW informed her that she has been accepted to [facility]. Pt agreed and stated that she is happy she will be going to a "nice area." Pts mood is less labile today and pt was calm and pleasant.
[2020-02-19 16:00] VITALS: BP 138/77
[2020-02-19] MEDS: FAMOTIDINE (20 MG) 20 MG TABLET PO SCH (17:46)
[2020-02-19] MEDS: HYDROCHLOROTHIAZIDE 25 MG TABLET PO SCH (17:46)
[2020-02-19] MEDS: LETROZOLE 2.5 MG TABLET PO SCH (17:48)
[2020-02-19 21:12] VITALS: BP 113/64
[2020-02-19] MEDS: SIMVASTATIN 10 MG TABLET PO SCH (21:16)
[2020-02-20 08:00] VITALS: BP 102/68
[2020-02-20] MEDS: MULTIVITAMINS,THERAGRAN 1 UDTAB TABLET PO SCH (08:13)
[2020-02-20] MEDS: LORATADINE 10 MG TABLET PO SCH (08:13)
[2020-02-20] MEDS: POLYETHYLENE GLYCOL 3350 17 GM POWD.PACK PO SCH (08:13)
[2020-02-20] MEDS: SPIRONOLACTONE 25 MG TABLET PO SCH (08:13)
[2020-02-20] MEDS: SENNOSIDES 8.6 MG TABLET PO SCH (08:13)
[2020-02-20] MEDS: DOCUSATE SODIUM 100 MG CAPSULE PO SCH ×2 (08:13→21:11)
[2020-02-20] MEDS: OLANZAPINE 5 MG TABLET PO SCH ×3 (08:13→17:19)
[2020-02-20] MEDS: GABAPENTIN 100 MG CAPSULE PO SCH ×2 (08:13→17:19)
--- NOTE | 2020-02-20 08:43 | NUR ---
Dr. Diaz made aware that the schedule of the [facility] os on Wednesday, February 21 at 10:30 AM.
[2020-02-20 16:00] VITALS: BP 103/69
[2020-02-20] MEDS: HYDROCHLOROTHIAZIDE 25 MG TABLET PO SCH (17:19)
[2020-02-20] MEDS: FAMOTIDINE (20 MG) 20 MG TABLET PO SCH (17:20)
[2020-02-20] MEDS: LETROZOLE 2.5 MG TABLET PO SCH (17:30)
[2020-02-20 20:42] VITALS: BP 107/72
[2020-02-20] MEDS: SIMVASTATIN 10 MG TABLET PO SCH (21:11)
[2020-02-21 08:00] VITALS: BP 115/69
[2020-02-21] MEDS: SPIRONOLACTONE 25 MG TABLET PO SCH ×2 (09:00→09:55)
[2020-02-21] MEDS: SENNOSIDES 8.6 MG TABLET PO SCH ×2 (09:00→09:55)
[2020-02-21] MEDS: OLANZAPINE 5 MG TABLET PO SCH ×4 (09:00→17:06)
[2020-02-21] MEDS: GABAPENTIN 100 MG CAPSULE PO SCH ×3 (09:00→17:06)
[2020-02-21] MEDS: POLYETHYLENE GLYCOL 3350 17 GM POWD.PACK PO SCH (09:00)
[2020-02-21] MEDS: DOCUSATE SODIUM 100 MG CAPSULE PO SCH ×3 (09:00→21:00)
[2020-02-21] MEDS: MULTIVITAMINS,THERAGRAN 1 UDTAB TABLET PO SCH ×2 (09:00→09:54)
[2020-02-21] MEDS: LORATADINE 10 MG TABLET PO SCH ×2 (09:00→09:54)
--- NOTE | 2020-02-21 09:19 | NUR ---
RN NOTE: MEDICATION REFUSAL PT REFUSED ALL AM MEDICATIONS. "NO TODAY DRUG PUSHER". EDUCATED PT ON IMPORTANCE OF MEDICATION COMPLIANCE. PT CONT'D TO REFUSE. SHELIA BATRES SCHEDULED THIS WEEK.
--- NOTE | 2020-02-21 09:55 | NUR ---
RN NOTE: PT AGREED TO TAKE AM MEDICATIONS LATE. PT IS DELUSIONAL BELIEVES STAFF CALL HER IN THE MIDDLE OF THE NIGHT WHILE "IN BED WITH SOMEONE". "FUCK YOU, DON'T CALL AGAIN". PT THREATENING TO HURT STAFF. "IM GOING TO FUCK YOU UP"
--- NOTE | 2020-02-21 10:06 | NUR ---
RN NOTE: AGGRESSION PT YELLING. "I'M IN POSTWAR. 21 PILLS. I DON'T LIKE MEXICANS. YOU'RE A SWISS." OFFERED PT PO PRN MEDICATION. PT STATED, "I ALREADY TOOK 21 PILLS, YESTERDAY IT WAS 7. YOU HAD YOUR CHANCE." WHEN ATTEMPTING TO DISCUSS PRN MED WITH PT, PT BEGAN TO POSTURE AND LUNGE AT STAFF. "FUCK YOU TOO. FUCK YOU ALL, FUCK YOUR MOTHERS, FUCK NATALIE, FUCK INOCENCIO." PT SLAMMED DOOR TO ROOM
[2020-02-21] MEDS ORDERED: OLANZAPINE 10 MG VIAL IM STA (10:08)
--- NOTE | 2020-02-21 10:11 | NUR ---
RN-CO: Patient is non redirectable, verbally abusive, slamming her door to staff and posturing to her primary nurse. Dr Campa ordered Zyprexa 10 mg PO IM, STAT. Addendum: 02/21/20 at 1014 by WHIT DOUGLAS RN RN-CO: PATIENT REFUSED TO TAKE ATIVAN PO.
--- NOTE | 2020-02-21 10:31 | NUR ---
RN NOTE: IM EMERGENCY MEDICATION PT HYPERVERBAL, VERBALLY ASSAULTIVE TO STAFF. POSTURING TOWARD STAFF. YELLING. SEXUALLY INAPPROPRIATE. PT GIVEN ZYPREXA 10MG IM TO RIGHT GLUT WITHOUT COMPLICATION.
--- NOTE | 2020-02-21 11:40 | NUR ---
RN-CO: DR MAZA MADE AWARE OF PATIENT'S NOT IMPROVING BEHAVIOR. PT REMAINS VERBALLY ABUSIVE, NON REDIRECTABLE, ANGRY AND UNPREDICTABLE.
[2020-02-21 16:02] VITALS: BP 120/79
[2020-02-21] MEDS: LETROZOLE 2.5 MG TABLET PO SCH (17:05)
[2020-02-21] MEDS: HYDROCHLOROTHIAZIDE 25 MG TABLET PO SCH (17:06)
[2020-02-21] MEDS: FAMOTIDINE (20 MG) 20 MG TABLET PO SCH (17:06)
[2020-02-21 19:50] VITALS: BP 134/81
[2020-02-21] MEDS: SIMVASTATIN 10 MG TABLET PO SCH (22:00)
[2020-02-22 08:00] VITALS: BP 128/59
[2020-02-22] MEDS: GABAPENTIN 100 MG CAPSULE PO SCH ×2 (08:20→17:14)
[2020-02-22] MEDS: LORATADINE 10 MG TABLET PO SCH (08:20)
[2020-02-22] MEDS: POLYETHYLENE GLYCOL 3350 17 GM POWD.PACK PO SCH ×2 (08:20→08:22)
[2020-02-22] MEDS: SENNOSIDES 8.6 MG TABLET PO SCH (08:20)
[2020-02-22] MEDS: SPIRONOLACTONE 25 MG TABLET PO SCH (08:20)
[2020-02-22] MEDS: DOCUSATE SODIUM 100 MG CAPSULE PO SCH ×2 (08:20→20:36)
[2020-02-22] MEDS: MULTIVITAMINS,THERAGRAN 1 UDTAB TABLET PO SCH (08:20)
[2020-02-22] MEDS: OLANZAPINE 5 MG TABLET PO SCH ×3 (08:20→17:15)
--- NOTE | 2020-02-22 09:00 | NUR ---
RN NOTE- PT OPPOSITIONAL THOUGH MED COMPLIANT. STATES "YOU'RE ALL DRUG PEDDLING AND YOU'LL BE ARRESTED" REDIRECTED. DENIES ALL ANGRILY. STAYING IN ROOM MUMBLING RESPONDING PARANOID
--- NOTE | 2020-02-22 11:20 | NUR ---
FAMILY CONTACT: MARGARET received a call from pts mother, Ashley ([phone]), who was requested updated information. MARGARET informed her that pt had a scheduled Medication Capacity [place] on this present day, However, it has been canceled due to pt being compliant with medication now. MARGARET informed her that pt received IM yesterday for aggressive behavior. Mother stated that pt is still not stable and stated that pt cannot go back to a board and care. MARGARET informed her that pt has been accepted to a SNF and mother agreed. Mother stated that she will be out of town and that MARGARET can call pts aunliliya Ayala ([phone]) for discharge purposes. Addendum: 02/22/20 at 1302 by DAV ROBLES MARGARET informed her that pt had a scheduled Medication Capacity [place] on this present day, due to pt not being complaint with medication.
--- NOTE | 2020-02-22 14:57 | NUR ---
GROUP NOTE: Pt is not appropriate for group at this time. Pt was verbally aggressive and paranoid. Pt is focused on being discharged. Pt was RIESED on this present day.
[2020-02-22 16:00] VITALS: BP 139/71
[2020-02-22] MEDS: FAMOTIDINE (20 MG) 20 MG TABLET PO SCH (17:14)
[2020-02-22] MEDS: HYDROCHLOROTHIAZIDE 25 MG TABLET PO SCH (17:15)
[2020-02-22] MEDS: LETROZOLE 2.5 MG TABLET PO SCH (17:20)
--- NOTE | 2020-02-22 19:30 | NUR ---
GPS RN OPENING PM NOTE RECIEVED REPORT FROM VON YOUNG. PT SEEN IN ROOM. AWAKE PACING IN ROOM. DENIES PAIN AT THIS TIME. PATIENT ALERT AND ORIENTED X4. PT DENIES SI/HI. PATIENT HAS RIESE ORDERED PER REPORT PATIENT HAS BEEN MED COMPLIANT DURING THE DAY. DENIES NEEDS AT THIS TIME. REVIEWED POC QUESTIONS CONCERNS ADDRESSED WILL CONT TO MONITOR. BED IS DOWN LOCKED SRX2. PT AMBULATORY WITH STEADY GAIT.
[2020-02-22 20:21] VITALS: BP 136/87
[2020-02-22] MEDS: TRAMADOL HCL 50 MG TABLET PO PRN (20:36)
[2020-02-22] MEDS: SIMVASTATIN 10 MG TABLET PO SCH (20:36)
--- NOTE | 2020-02-22 20:40 | NUR ---
ULTRAM ADMINISTERED PER PATIENT REQUEST FOR BACK PAIN/ AND ABD/CHEST SORENESS TO RIGHT SIDE. RATED 5/10.
[2020-02-23 08:00] VITALS: BP 134/72
[2020-02-23] MEDS: SPIRONOLACTONE 25 MG TABLET PO SCH (08:17)
[2020-02-23] MEDS: SENNOSIDES 8.6 MG TABLET PO SCH (08:17)
[2020-02-23] MEDS: MULTIVITAMINS,THERAGRAN 1 UDTAB TABLET PO SCH (08:18)
[2020-02-23] MEDS: OLANZAPINE 5 MG TABLET PO SCH ×2 (08:18→17:04)
[2020-02-23] MEDS: DOCUSATE SODIUM 100 MG CAPSULE PO SCH ×2 (08:18→21:00)
[2020-02-23] MEDS: GABAPENTIN 100 MG CAPSULE PO SCH ×2 (08:18→17:04)
[2020-02-23] MEDS: LORATADINE 10 MG TABLET PO SCH (08:18)
[2020-02-23] MEDS: POLYETHYLENE GLYCOL 3350 17 GM POWD.PACK PO SCH (08:21)
--- NOTE | 2020-02-23 09:00 | NUR ---
RN NOTE- VERBALLY DISMISSIVE DURING INTERACTION. STATED 'WHATEVER YOU SDAY DRUG DEALER' WHEN GIVING HER MEDS. TOLD ME TO 'LEAVE'. MED COMPLIANT ANGRY AFFECT. DENIES ALL ISOLATIVE AND WITHDRAWN
[2020-02-23] MEDS: TRAMADOL HCL 50 MG TABLET PO PRN (14:08)
--- NOTE | 2020-02-23 15:30 | NUR ---
RN NOTE- COVID TEST DONE FOR PLACEMENT AND TAKEN TO LAB BY THIS RN
--- NOTE | 2020-02-23 15:35 | NUR ---
GROUP NOTE: SW encouraged pt to attend group therapy on this present day. Pt was asleep and not easily roused by verbal cues.
[2020-02-23 16:00] VITALS: BP 115/75
[2020-02-23] MEDS: FAMOTIDINE (20 MG) 20 MG TABLET PO SCH (17:04)
[2020-02-23] MEDS: LETROZOLE 2.5 MG TABLET PO SCH (17:04)
[2020-02-23] MEDS: HYDROCHLOROTHIAZIDE 25 MG TABLET PO SCH (17:08)
[2020-02-23 20:04] VITALS: BP 102/70
[2020-02-23] MEDS: SIMVASTATIN 10 MG TABLET PO SCH (21:01)
--- NOTE | 2020-02-23 21:01 | NUR ---
GPS RN NOTES: REFUSED MEDS/ASLEEP PT REFUSED COLACE 100MG AND ZOCOR 10MG DUE. PT EASILY AGITATED AND WANTS TO GO BACK TO SLEEP. EXPLAIN RISKS AND BENEFITS. PT STILL REFUSED X3. NO SOB. BREATHING EVEN AND UNLABORED.
[2020-02-24 08:00] VITALS: BP 107/66
[2020-02-24] MEDS: GABAPENTIN 100 MG CAPSULE PO SCH ×2 (09:20→17:23)
[2020-02-24] MEDS: LORATADINE 10 MG TABLET PO SCH (09:20)
[2020-02-24] MEDS: POLYETHYLENE GLYCOL 3350 17 GM POWD.PACK PO SCH ×2 (09:20→09:23)
[2020-02-24] MEDS: SPIRONOLACTONE 25 MG TABLET PO SCH (09:20)
[2020-02-24] MEDS: SENNOSIDES 8.6 MG TABLET PO SCH (09:20)
[2020-02-24] MEDS: DOCUSATE SODIUM 100 MG CAPSULE PO SCH ×2 (09:20→21:00)
[2020-02-24] MEDS: MULTIVITAMINS,THERAGRAN 1 UDTAB TABLET PO SCH (09:20)
[2020-02-24] MEDS: OLANZAPINE 5 MG TABLET PO SCH ×2 (09:21→17:23)
[2020-02-24] MEDS: LORAZEPAM 0.5 MG TABLET PO PRN (10:56)
--- NOTE | 2020-02-24 14:23 | NUR ---
INDIVIDUAL INTERVENTION: SW discussed pts mood with pt, pt states she is feeling better and is responding well to the medication changes. Pt did not engage in conversation and stated she wanted to go watch TV instead of talking to SW.
[2020-02-24 16:00] VITALS: BP 98/63
[2020-02-24] MEDS: FAMOTIDINE (20 MG) 20 MG TABLET PO SCH (17:22)
[2020-02-24] MEDS: LETROZOLE 2.5 MG TABLET PO SCH (17:22)
[2020-02-24] MEDS: HYDROCHLOROTHIAZIDE 25 MG TABLET PO SCH (17:23)
[2020-02-24 20:10] VITALS: BP 100/58
[2020-02-24] MEDS: SIMVASTATIN 10 MG TABLET PO SCH (21:02)
--- NOTE | 2020-02-24 21:03 | NUR ---
GPS RN NOTES: REFUSED MEDS/ASLEEP PT REFUSED COLACE 100MG AND ZOCOR 10MG DUE. PT EASILY AGITATED AND WANTS TO GO BACK TO SLEEP. EXPLAIN RISKS AND BENEFITS. PT STILL REFUSED X3. NO SOB. BREATHING EVEN AND UNLABORED. PT REFUSED TO RECHECK VITALS. PT IN AN ANGRY MOOD. WILL TRY AGAIN LATER. CONTINUE TO MONITOR.
[2020-02-25 08:00] VITALS: BP 115/57
[2020-02-25] MEDS: OLANZAPINE 5 MG TABLET PO SCH ×2 (08:17→17:08)
[2020-02-25] MEDS: LORATADINE 10 MG TABLET PO SCH (08:17)
[2020-02-25] MEDS: SPIRONOLACTONE 25 MG TABLET PO SCH (08:18)
[2020-02-25] MEDS: SENNOSIDES 8.6 MG TABLET PO SCH (08:18)
[2020-02-25] MEDS: MULTIVITAMINS,THERAGRAN 1 UDTAB TABLET PO SCH (08:18)
[2020-02-25] MEDS: DOCUSATE SODIUM 100 MG CAPSULE PO SCH ×2 (08:18→21:00)
[2020-02-25] MEDS: GABAPENTIN 100 MG CAPSULE PO SCH ×2 (08:18→17:08)
--- NOTE | 2020-02-25 09:50 | NUR ---
FAMILY CONTACT: MARGARET received a call from pts mother, Ashley ([phone]), requesting discharge information. SW informed her that MD wishes for pt to be discharged to an Assisted Living or Board and Care. Pts mother does not agree with discharge plan and states she wishes for pt to be a SNF due to pts lack of medication compliance. MARGARET states that she would inform MD.
--- NOTE | 2020-02-25 10:44 | NUR ---
SNF CONTACT: SW received a call from Kim, loan administrator at [facility] Address: [facility] [facility], [place] [address] to coordinate a video call with pt. SW coordinated video call and pt became agitated and refused to go to the facility. Pt stated the facility was conspiring against her and they were lying to her.
--- NOTE | 2020-02-25 14:28 | NUR ---
SNF CONTACT: SW contacted [facility] Address: [address] [place] [address] and spoke with Bryson, in intake who confirmed pt has been accepted to the facility. He states a bed will be available by Saturday02/29/20.
--- NOTE | 2020-02-25 14:32 | NUR ---
INDIVIDUAL INTERVENTION: SW spoke with pt regarding placement. Pt refuses to go to a SNF pt appears paranoid and states the SNF's are conspiring against her and are trying to take her money. Pt is agitated and was yelling at SW. Pt is difficult to redirect and engage in an appropriate conversation.
[2020-02-25 16:00] VITALS: BP 116/79
[2020-02-25] MEDS: HYDROCHLOROTHIAZIDE 25 MG TABLET PO SCH (17:09)
[2020-02-25] MEDS: LETROZOLE 2.5 MG TABLET PO SCH (17:22)
[2020-02-25] MEDS: FAMOTIDINE (20 MG) 20 MG TABLET PO SCH (17:22)
[2020-02-25 20:00] VITALS: BP 133/78
[2020-02-25] MEDS: SIMVASTATIN 10 MG TABLET PO SCH (21:21)
--- NOTE | 2020-02-25 21:55 | NUR ---
GPS-RN NOTE: REFUSAL OF COLACE MED PATIENT REFUSED SCHEDULED COLACE MED. EDUCATED PATIENT REGARDING IMPORTANCE OF MEDICATION COMPLIANCE. PT CONTINUED TO REFUSE X3 AND PT. BECAME AGITATED. WILL CONTINUE TO MONITOR FOR SAFETY.
--- NOTE | 2020-02-26 03:30 | NUR ---
NURSES NOTES: RECEIVED A CALL FROM LAB STAFFAlfonzo LOGAN REGARDING PATIENT COVID19 TEST NEGATIVE RESULTS. NOTED. PRIMARY NURSE NOVEM MADE AWARE.
[2020-02-26 08:00] VITALS: BP 126/82
[2020-02-26] MEDS: DOCUSATE SODIUM 100 MG CAPSULE PO SCH ×2 (08:13→21:31)
[2020-02-26] MEDS: SENNOSIDES 8.6 MG TABLET PO SCH (08:14)
[2020-02-26] MEDS: POLYETHYLENE GLYCOL 3350 17 GM POWD.PACK PO SCH (08:14)
[2020-02-26] MEDS: MAG HYDROX/AL HYDROX/SIMETH 30 ML UDC PO PRN (08:34)
[2020-02-26] MEDS: OLANZAPINE 5 MG TABLET PO SCH ×2 (08:34→17:37)
[2020-02-26] MEDS: LORATADINE 10 MG TABLET PO SCH (08:35)
[2020-02-26] MEDS: MULTIVITAMINS,THERAGRAN 1 UDTAB TABLET PO SCH (08:35)
[2020-02-26] MEDS: GABAPENTIN 100 MG CAPSULE PO SCH ×2 (08:35→17:37)
[2020-02-26] MEDS: SPIRONOLACTONE 25 MG TABLET PO SCH (08:35)
[2020-02-26 16:00] VITALS: BP 110/67
[2020-02-26] MEDS: HYDROCHLOROTHIAZIDE 25 MG TABLET PO SCH (18:00)
[2020-02-26] MEDS: LETROZOLE 2.5 MG TABLET PO SCH (18:00)
[2020-02-26] MEDS: FAMOTIDINE (20 MG) 20 MG TABLET PO SCH (18:00)
--- NOTE | 2020-02-26 18:13 | NUR ---
GPS/RN PT REFUSED 1800 MEDS. STATES: " YOU TRYING TO ASSASSINATE ME WITH THE PILLS..."
[2020-02-26 20:00] VITALS: BP 103/69
[2020-02-26] MEDS: TRAMADOL HCL 50 MG TABLET PO PRN (20:55)
--- NOTE | 2020-02-26 20:55 | NUR ---
GPS RN NOTE: PAIN PT. C/O OF GENERALIZED PAIN. ADMINISTERED ULTRAM 50 MG PO PRN ORDERED. WILL CONTINUE TO MONITOR FOR SAFETY AND BEHAVIOR
[2020-02-26] MEDS: SIMVASTATIN 10 MG TABLET PO SCH (21:31)
[2020-02-27 08:00] VITALS: BP 140/79
[2020-02-27] MEDS: LORATADINE 10 MG TABLET PO SCH (08:20)
[2020-02-27] MEDS: SPIRONOLACTONE 25 MG TABLET PO SCH (08:20)
[2020-02-27] MEDS: MULTIVITAMINS,THERAGRAN 1 UDTAB TABLET PO SCH (08:20)
[2020-02-27] MEDS: GABAPENTIN 100 MG CAPSULE PO SCH ×2 (08:20→16:18)
[2020-02-27] MEDS: OLANZAPINE 5 MG TABLET PO SCH ×2 (08:24→16:18)
[2020-02-27] MEDS: SENNOSIDES 8.6 MG TABLET PO SCH (08:45)
[2020-02-27] MEDS: DOCUSATE SODIUM 100 MG CAPSULE PO SCH ×2 (08:45→21:40)
[2020-02-27] MEDS: POLYETHYLENE GLYCOL 3350 17 GM POWD.PACK PO SCH (08:45)
[2020-02-27] MEDS: LORAZEPAM 0.5 MG TABLET PO PRN (09:39)
--- NOTE | 2020-02-27 09:40 | NUR ---
GPS/RN-NOTES DURING MY ROUNDS NOTED PATIENT IN THE ROOM ANGRY TALKING AND MUMBLING TO SELF CARPENTER REPAIRER ASKING WHAT HAPPEN BUT PATIENT STATED" IT'S NON OF YOUR BUSINESS BITCH". REDIRECTED AND OFFERED ATIVAN. ATIVAN 1MG P.O GIVEN PRN ORDER. WILL CONT. MONITORING FOR SAFETY AND BEHAVIOR.
--- NOTE | 2020-02-27 10:30 | NUR ---
GPS/RN-NOTES PATIENT LAYING IN BED AWAKE,ALERT CALM ,NO ACUTE DISTRESS NOTED.
[2020-02-27 16:00] VITALS: BP 138/78
[2020-02-27] MEDS: FAMOTIDINE (20 MG) 20 MG TABLET PO SCH (17:31)
[2020-02-27] MEDS: HYDROCHLOROTHIAZIDE 25 MG TABLET PO SCH (17:31)
[2020-02-27] MEDS: LETROZOLE 2.5 MG TABLET PO SCH (17:31)
[2020-02-27 20:34] VITALS: BP 111/65
[2020-02-27] MEDS: SIMVASTATIN 10 MG TABLET PO SCH (21:40)
[2020-02-28 08:00] VITALS: BP 100/64
[2020-02-28] MEDS: DOCUSATE SODIUM 100 MG CAPSULE PO SCH ×2 (08:22→20:11)
[2020-02-28] MEDS: SENNOSIDES 8.6 MG TABLET PO SCH (08:22)
[2020-02-28] MEDS: SPIRONOLACTONE 25 MG TABLET PO SCH (08:22)
[2020-02-28] MEDS: MULTIVITAMINS,THERAGRAN 1 UDTAB TABLET PO SCH (08:22)
[2020-02-28] MEDS: POLYETHYLENE GLYCOL 3350 17 GM POWD.PACK PO SCH (08:22)
[2020-02-28] MEDS: LORATADINE 10 MG TABLET PO SCH (08:23)
[2020-02-28] MEDS: OLANZAPINE 5 MG TABLET PO SCH ×2 (08:23→16:41)
[2020-02-28] MEDS: GABAPENTIN 100 MG CAPSULE PO SCH ×2 (08:23→16:41)
[2020-02-28 16:00] VITALS: BP 121/61
[2020-02-28] MEDS: HYDROCHLOROTHIAZIDE 25 MG TABLET PO SCH (18:00)
[2020-02-28] MEDS: LETROZOLE 2.5 MG TABLET PO SCH (18:00)
[2020-02-28] MEDS: FAMOTIDINE (20 MG) 20 MG TABLET PO SCH (18:00)
[2020-02-28] MEDS: SIMVASTATIN 10 MG TABLET PO SCH (21:00)
--- NOTE | 2020-02-28 21:00 | NUR ---
GPS-RN NOTE: PATIENT REFUSED SKIN ASSESSMENT.
[2020-02-28 21:21] VITALS: BP 110/73
[2020-02-29 08:00] VITALS: BP 111/60
[2020-02-29] MEDS: SENNOSIDES 8.6 MG TABLET PO SCH (08:16)
[2020-02-29] MEDS: SPIRONOLACTONE 25 MG TABLET PO SCH (08:16)
[2020-02-29] MEDS: MULTIVITAMINS,THERAGRAN 1 UDTAB TABLET PO SCH (08:16)
[2020-02-29] MEDS: DOCUSATE SODIUM 100 MG CAPSULE PO SCH (08:16)
[2020-02-29] MEDS: GABAPENTIN 100 MG CAPSULE PO SCH (08:16)
[2020-02-29] MEDS: POLYETHYLENE GLYCOL 3350 17 GM POWD.PACK PO SCH (08:16)
[2020-02-29] MEDS: LORATADINE 10 MG TABLET PO SCH (08:16)
[2020-02-29] MEDS: OLANZAPINE 5 MG TABLET PO SCH (08:17)
--- NOTE | 2020-02-29 09:25 | NUR ---
FAMILY CONTACT: SW contacted pts mother, Ashley ([phone]), to inform her pt will be discharged on this present day to [facility] Address: [address] [place] [address] . Mother agreed with discharge plan.
--- NOTE | 2020-02-29 10:12 | NUR ---
DISCHARGE NOTE: Pt will be discharged at 4:30pm via [facility] to [facility] Address: [address] [place] [address] . Pts mother, Ashley ([phone]), has been notified and agrees with discharge plan. Pts mood is labile with congruent affect. Pt denied visual/auditory hallucinations and denied suicidal/ homicidal ideation. Pt will follow up with Psychiatrist: Dr. Ben Diaz Address: [address] [place] [address] [address] [address] and Chemists: Dr. Isak Fernández Address: [address] [place] [address] [id number], [place] [address] . The multidisciplinary exit care form was done, printed, signed, and given to the patient
[2020-02-29 16:00] VITALS: BP 121/71
--- NOTE | 2020-02-29 16:55 | NUR ---
TOBACCO STRIPPER HAND NOTE: patient alert ,ox3 ,verbally responsive ,no c/o pain ,denies SI/HI/AVH ,no s/s of distress noted ,med compliant ,patient stated I feel better , called with discharge orders all orders carried out.All belongings returned to patient .patient seen by report given to Madeline YOUNG in [facility] ,patient discharge at 16:55 with ambulance .
== END 2020-02-29 16:55 | DRG 885 ==
LOC: GPS 15:02
PROVIDERS: ADMIT Psychiatry & Neurology Psychiatry; ATTEND Internal Medicine
PROC: 0HBRXZZ Excision of Toe Nail, External Approach (ICD-10-PCS; principal; 2020-02-16)
PROC: 0HBRXZZ Excision of Toe Nail, External Approach (ICD-10-PCS; 2020-02-16)
PROC: 0HBRXZZ Excision of Toe Nail, External Approach (ICD-10-PCS; 2020-02-16)
PROC: 0HBRXZZ Excision of Toe Nail, External Approach (ICD-10-PCS; 2020-02-16)
PROC: 0HBRXZZ Excision of Toe Nail, External Approach (ICD-10-PCS; 2020-02-16)
PROC: 0HBRXZZ Excision of Toe Nail, External Approach (ICD-10-PCS; 2020-02-16)
PROC: 0HBRXZZ Excision of Toe Nail, External Approach (ICD-10-PCS; 2020-02-16)
PROC: 0HBRXZZ Excision of Toe Nail, External Approach (ICD-10-PCS; 2020-02-16)
PROC: 0HBRXZZ Excision of Toe Nail, External Approach (ICD-10-PCS; 2020-02-16)
PROC: 0HBRXZZ Excision of Toe Nail, External Approach (ICD-10-PCS; 2020-02-16)
DX: F20.0 Paranoid schizophrenia (principal); E78.5 Hyperlipidemia, unspecified; F32.9 Major depressive disorder, single episode, unspecified; G40.909 Epilepsy, unspecified, not intractable, without status epilepticus; I10 Essential (primary) hypertension; F17.200 Nicotine dependence, unspecified, uncomplicated; F29 Unspecified psychosis not due to a substance or known physiological condition; Z73.6 Limitation of activities due to disability; B35.1 Tinea unguium; G62.9 Polyneuropathy, unspecified; I87.2 Venous insufficiency (chronic) (peripheral)
CPT/HCPCS: 36415; 80053-TC; 80061-TC; 82962-TC; 87081-TC; J3490; U0003-CS